=== PATIENT | female | born 1990 | race Caucasian/White ===

== ENCOUNTER 2018-02-28 07:58 | Day surgery (SDC) | payer OTHER ==
[~2018-02-28] VITALS: Ht 165.1 cm; Wt 83.9 kg
[2018-02-28] MEDS ORDERED: BUPIVACAINE-MPF/EPI 0.25% 30 ML VIAL INJ ONE (09:02)
[2018-02-28] MEDS ORDERED: PROPOFOL 200 MG/20 ML VIAL IV ONE (09:20)
[2018-02-28] MEDS ORDERED: ONDANSETRON 4 MG/2 ML VIAL ONE (09:20)
[2018-02-28] MEDS ORDERED: DEXAMETHASONE 4 MG/ML VIAL ONE (09:20)
[2018-02-28] MEDS ORDERED: KETOROLAC 30 MG/ML VIAL ONE (09:20)
[2018-02-28] MEDS ORDERED: DESFLURANE 240 ML BTL INH ONE (09:20)
[2018-02-28] MEDS ORDERED: SUCCINYLCHOLINE CHLORIDE 200 MG/10 ML VIAL IVP ONE (09:20)
[2018-02-28] MEDS ORDERED: LIDOCAINE 2% 100 MG/5 ML SYR IVP ONE (09:20)
[2018-02-28] MEDS ORDERED: ROCURONIUM 50 MG/5 ML VIAL IV ONE (09:20)
[2018-02-28] MEDS ORDERED: MIDAZOLAM 2 MG/2 ML VIAL ONE (09:32)
[2018-02-28] MEDS ORDERED: fentaNYL 0.05 MG/ML VIAL ONE (09:32)
[2018-02-28] MEDS ORDERED: HYDROmorphone 1 MG/ML AMP IVP PRN ×2 (09:55→11:00)
[2018-02-28] MEDS ORDERED: ONDANSETRON 4 MG/2 ML VIAL IVP PRN (09:55)
[2018-02-28] MEDS: HYDROmorphone PFS 2 MG/ML SYR ONE ×4 (10:55→11:25)
[2018-02-28] MEDS ORDERED: NACL 0.9% 1,000 ML IV SCH (10:56)
[2018-02-28] MEDS ORDERED: HYDROcodone/APAP 5/325 MG 1 TAB TAB PO PRN (11:00)
[2018-02-28] MEDS ORDERED: ACETAMINOPHEN 325 MG TAB PO PRN (11:00)
[2018-02-28] MEDS ORDERED: ONDANSETRON 4 MG/2 ML VIAL IV PRN (11:00)
[2018-02-28] MEDS ORDERED: MORPHINE SULFATE 4 MG/ML SYR IV PRN (11:00)
== END 2018-02-28 13:00 | disposition home or self-care (01) ==
LOC: MDS 07:58 → MMU 07:59 → MDS 13:00
PROVIDERS: ATTEND Surgery
DX: K80.18 Calculus of gallbladder with other cholecystitis without obstruction (principal); I10 Essential (primary) hypertension; E66.9 Obesity, unspecified; Z68.30 Body mass index [BMI] 30.0-30.9, adult; Z79.899 Other long term (current) drug therapy
CPT/HCPCS: 36415; 47562; 71045; 82374; 86886; 86900; 86901; 88304; C1887; J0330; J0690; J1100; J1170; J1885; J2001; J2250; J2405; J2704; J3010; J3490; J7030; J7060; J7120